=== PATIENT | male | born 2000 | race Caucasian/White ===

== ENCOUNTER 2025-02-17 11:23 | Emergency (ER) | payer MEDICAID ==
[~2025-02-17] VITALS: Ht 182.9 cm; Wt 150.0 kg
[2025-02-17 11:33] VITALS: O2SAT 95
[2025-02-17] MEDS: ACETAMINOPHEN 500MG TABLET PO ONE (12:57)
[2025-02-17 14:24] VITALS: BP 155/99; PULSE 89; RESP 16; TEMP 36.7; O2SAT 98
== END 2025-02-17 14:25 | disposition home or self-care (01) ==
LOC: ER 11:51
DX: S93.401A Sprain of unspecified ligament of right ankle, initial encounter (principal); Z90.49 Acquired absence of other specified parts of digestive tract; Z88.0 Allergy status to penicillin; X50.1XXA Overexertion from prolonged static or awkward postures, initial encounter; Y93.89 Activity, other specified; Y92.89 Other specified places as the place of occurrence of the external cause; Y99.8 Other external cause status
CPT/HCPCS: 99283; 73610; A6449